=== PATIENT | female | born 1960 | race Hispanic/Latino ===

== ENCOUNTER 2021-02-25 22:31 | Emergency (ER) | payer MEDICAID ==
[~2021-02-25] VITALS: Ht 144.8 cm; Wt 117.0 kg
[~2021-02-25 22:31] MED LIST: AMLO-257 PO; ASPI-556 PO; CHOL100053 PO; DIVA500T52 PO; ENAL5TAB17 PO; ESOM40SU PO; GABA-531 PO; MONT-39 PO; SIMV40TA59 PO; TOPI50TA24 PO; TRAM50TA4 PO
[2021-02-25 22:48] VITALS: BP 111/74
[2021-02-25] MEDS ORDERED: HYDROCODONE/ACETAMINOPHEN 10/325 MG TAB ONE (22:51)
[2021-02-25] MEDS ORDERED: HYDROCODONE/ACETAMINOPHEN 10/325 MG TAB PO ONE (23:00)
[2021-02-25] MEDS ORDERED: ACET-2247 PO (23:19)
== END 2021-02-25 23:27 | disposition home or self-care (01) ==
LOC: EDH 22:31
DX: S93.402A Sprain of unspecified ligament of left ankle, initial encounter (principal); E03.9 Hypothyroidism, unspecified; I10 Essential (primary) hypertension; J44.9 Chronic obstructive pulmonary disease, unspecified; E66.9 Obesity, unspecified; Z88.0 Allergy status to penicillin; Z88.5 Allergy status to narcotic agent; Z79.82 Long term (current) use of aspirin; Z79.899 Other long term (current) drug therapy; X50.1XXA Overexertion from prolonged static or awkward postures, initial encounter; Y93.01 Activity, walking, marching and hiking; Y92.89 Other specified places as the place of occurrence of the external cause; Y99.8 Other external cause status
CPT/HCPCS: 73610; 73630

== ENCOUNTER 2024-02-10 12:24 | Inpatient (IN) | payer MEDICAID ==
[2024-02-10] VITALS (10 sets, daily range): BP systolic 155; BP diastolic 76–81; PULSE 71–89; RESP 16–27; TEMP 97.7–99.3; O2SAT 93–99
[~2024-02-10] VITALS: Ht 142.2 cm; Wt 129.9 kg
[~2024-02-10 12:24] MED LIST changes: +ACET-2247 PO; +ENAL-87 PO; -ENAL5TAB17 PO; +TOPI-97 PO; -TOPI50TA24 PO
[2024-02-10] MEDS: Solu-medROL 125MG VIAL IVP ONE (13:03)
[2024-02-10] MEDS: acetaMINOPHEN 500 MG TABLET PO ONE (13:04)
[2024-02-10 13:10] LABS: BASOPHILS # (AUTO) 0.08 K/uL (0.00-0.20); BASOPHILS % (AUTO) 0.4 % (0.0-5.0); EOSINOPHILS # (AUTO) 0.05 K/uL (0.00-0.70); EOSINOPHILS % (AUTO) 0.2 % (0.0-8.0); HEMATOCRIT 42.2 % (36-48); IMMATURE GRANULOCYTE ABSOLUTE 0.17 K/uL (0-1); LYMPHOCYTES # (AUTO) 2.3 K/uL (1.0-4.8); LYMPHOCYTES % (AUTO) 10.3 % (21.0-51.0); MEAN CORPUSCULAR HEMOGLOBIN 29.7 pg (27.0-33.0); MEAN CORPUSCULAR HGB CONC 32.7 g/dL (32.0-36.0); MEAN CORPUSCULAR VOLUME 90.9 fL (79-99); MONOCYTES # (AUTO) 1.4 K/uL (0.1-1.0); MONOCYTES % (AUTO) 6.6 % (3.0-13.0); NEUTROPHILS % (AUTO) 81.7 % (40.0-77.0); PLATELET COUNT (AUTO) 157 K/uL (130-400); RED BLOOD CELL COUNT(AUTO) 4.64 MIL/uL (4.00-5.50); RED CELL DISTRIBUTION WIDTH 15.9 % (11.0-15.5)
[2024-02-10] MEDS: IpraTROPium/alBUTERol SULFATE 3 ML SOLUTION IH ONE (13:13)
[2024-02-10 13:17] LABS: SARS-CoV-2, RNA, NAAT NEGATIVE SARS CoV-2 (NEGATIVE)
[2024-02-10 13:20] LABS: CREATININE 1.1 mg/dL (0.5-1.0); POTASSIUM 3.5 mmol/L (3.5-5.1)
[2024-02-10 13:22] LABS: INFLUENZA TYPE A Negative For Type A (NEGATIVE); INFLUENZA TYPE B Negative For Type B (NEGATIVE)
[2024-02-10 13:32] LABS: B-TYPE NATRIURETIC PEPTIDE 49 pg/mL (0-100)
[2024-02-10] MEDS ORDERED: AZITHROMYCIN 500MG+NS 250ML 250 ML IVPB ONE (14:00)
[2024-02-10] MEDS: DOXYCYCLINE 100MG+NS 250ML 250 ML IV SCH (14:24)
[2024-02-10] MEDS ORDERED: DiphenhydrAMINE HCL 25 MG CAPSULE PO PRN (14:30)
[2024-02-10] MEDS ORDERED: LACTULOSE 20 GM/30 ML UDCUP PO PRN (14:30)
[2024-02-10] MEDS ORDERED: guaiFENesin-DM 200/20MG 10ML PO PRN (14:30)
[2024-02-10] MEDS ORDERED: hydrALAZine 20MG/ML VIAL IV PRN (14:30)
[2024-02-10] MEDS ORDERED: hydrALAZine 25MG TABLET PO PRN (14:30)
[2024-02-10] MEDS ORDERED: acetaMINOPHEN 325 MG TAB PO PRN (14:30)
[2024-02-10] MEDS ORDERED: NITROGLYCERIN 0.4 MG SL TAB SL PRN (14:30)
[2024-02-10] MEDS ORDERED: ARTIFICAL TEARS SOL 15 ML OP PRN (14:30)
[2024-02-10] MEDS ORDERED: ondanSETRON 4MG INJ IV PRN (14:30)
[2024-02-10] MEDS ORDERED: ALPRAZolam 0.5 MG TABLET PO PRN (14:30)
[2024-02-10] MEDS ORDERED: MAG/ALUM/SIMETH 30 ML UDCUP PO PRN (14:30)
[2024-02-10] MEDS: levoFLOXacin 750 MG/D5W 150ML BAG IV ONE (14:37)
[2024-02-10] MEDS ORDERED: ROPI1TAB46 PO (15:20)
[2024-02-10] MEDS ORDERED: OMEP20CA12 PO (15:20)
[2024-02-10] MEDS ORDERED: HYDR25TA67 PO (15:20)
[2024-02-10] MEDS ORDERED: FURO80TA3 PO (15:20)
[2024-02-10] MEDS ORDERED: CETI10TA57 PO (15:20)
[2024-02-10] MEDS ORDERED: BUDE10.2 IH (15:20)
[2024-02-10] MEDS ORDERED: TRAZ-187 PO (15:20)
[2024-02-10] MEDS ORDERED: CARV25TA PO (15:20)
[2024-02-10] MEDS ORDERED: DAPA10TA PO (15:20)
[2024-02-10] MEDS ORDERED: AMLO-142 PO (15:20)
[2024-02-10] MEDS ORDERED: LEVO25CA4 PO (15:20)
[2024-02-10] MEDS ORDERED: SPIR25TA6 PO (15:20)
[2024-02-10] MEDS ORDERED: CLOP-31 PO (15:20)
[2024-02-10] MEDS ORDERED: DIVA500T52 PO (15:20)
[2024-02-10] MEDS: Solu-medROL 40MG VIAL IVP SCH (15:39)
[2024-02-10] MEDS: ceFEPime HCL 1 GM VIAL IVPB SCH (15:39)
[2024-02-10] MEDS: furoSEMIDE 40MG VIAL IV SCH (15:39)
[2024-02-10] MEDS: monteLUKAST sodIUM 10 MG TAB PO SCH (18:03)
[2024-02-10] MEDS: acetaMINOPHEN 325 MG TAB PO PRN (18:04)
[2024-02-10] MEDS: simVASTatin 20 MG TABLET PO SCH (19:57)
[2024-02-10] MEDS: divALPRoex SOdium 250 MG TAB PO SCH (19:58)
[2024-02-10] MEDS: topIRAMate 25 MG TABLET PO SCH (19:58)
[2024-02-10] MEDS: GABAPENTIN 300 MG CAPSULE PO SCH (19:58)
[2024-02-10] MEDS: INSULIN humuLIN R 100 UNIT/ML 3ML SQ SCH (19:59)
[2024-02-10] MEDS: IpraTROPium/alBUTERol SULFATE 3 ML SOLUTION IH SCH (20:21)
[2024-02-10] MEDS: ZOLPidem TARTrate 5 MG TAB PO PRN (20:39)
[2024-02-10] MEDS: FAMOTIDINE 20MG VIAL IV SCH (20:39)
[2024-02-10] MEDS: guaiFENesin SUGAR-FREE 100 MG/5 ML UDCUP PO PRN (20:39)
[2024-02-10] MEDS: BENZOCAINE/MENTH/CETYLPYRD CL 1 EACH LOZENGE MM PRN (20:39)
[2024-02-10 23:12] LABS: APPEARANCE,URINE CLEAR (CLEAR); BILIRUBIN,URINE NEGATIVE (NEGATIVE); COLOR,URINE LIGHT-YELLOW (YELLOW); GLUCOSE, URINE (UA) >=1000 mg/dL (NEGATIVE); KETONES,URINE NEGATIVE (NEGATIVE); LEUKOCYTE ESTERASE ,URINE NEGATIVE Leu/uL (NEGATIVE); NITRATE,URINE NEGATIVE (NEGATIVE); PROTEIN,URINE 10 mg/dL (NEGATIVE); UROBILINOGEN,URINE 0.2 mg/dL (0.2-1.0)
[2024-02-10 23:13] LABS: ADD UA MICROSCOPIC YES
[2024-02-10 23:14] LABS: BACTERIA,URINE FEW /HPF (None Seen); MUCUS,URINE RARE LPF (None Seen); RBC,URINE 0-1 /HPF (0-1); SQUAMOUS EPITHELIAL CELL,UR RARE /HPF (0-2)
[2024-02-11] VITALS (20 sets, daily range): BP systolic 121–145; BP diastolic 57–83; PULSE 64–89; RESP 19–30; TEMP 97.6–98.9; O2SAT 28–100
[2024-02-11 04:53] LABS: HEMATOCRIT 42.5 % (36-48); MEAN CORPUSCULAR HEMOGLOBIN 29.2 pg (27.0-33.0); MEAN CORPUSCULAR HGB CONC 32.7 g/dL (32.0-36.0); MEAN CORPUSCULAR VOLUME 89.3 fL (79-99); RED BLOOD CELL COUNT(AUTO) 4.76 MIL/uL (4.00-5.50); RED CELL DISTRIBUTION WIDTH 14.8 % (11.0-15.5); WHITE BLOOD COUNT (AUTO) 16.3 K/uL (4.8-10.8)
[2024-02-11 05:02] LABS: HEMOGLOBIN A1C 6.1 % (4.0-6.0)
[2024-02-11 05:15] LABS: CREATININE 1.1 mg/dL (0.5-1.0); MAGNESIUM 1.5 mg/dL (1.80-2.40); PHOSPHORUS 3.4 mg/dL (2.5-4.9); POTASSIUM 3.7 mmol/L (3.5-5.1)
[2024-02-11] MEDS: PANTOPrazole 40 MG TAB DR PO SCH (06:36)
[2024-02-11] MEDS: ENALAPRIL MALEATE 5 MG TAB PO SCH (08:49)
[2024-02-11] MEDS: amLODIPine 5 MG TAB PO SCH (08:50)
[2024-02-11] MEDS: ASPIRIN 81 MG EC TAB PO SCH (08:51)
[2024-02-11] MEDS: ENOXAPARIN SODIUM 40 MG/0.4 ML SYRINGE SQ SCH (08:52)
[2024-02-11] MEDS: ropiNIRole HCL 1 MG TABLET PO SCH (08:56)
[2024-02-11] MEDS: cloPIDOgrel 75MG TAB PO SCH (08:56)
[2024-02-11] MEDS: SPIRONOLACTONE 25 MG TAB PO SCH (08:56)
[2024-02-11] MEDS: carVEDIlol 25 MG TABLET PO SCH (08:56)
[2024-02-11] MEDS: hydrALAZine 25MG TABLET PO SCH (08:56)
[2024-02-11] MEDS ORDERED: DIVALPROEX SODIUM 500 MG PO SCH (09:00)
[2024-02-11] MEDS ORDERED: PHARMACY COMMUNICATION MISC SCH (09:30)
[2024-02-11] MEDS ORDERED: PoTASSium chl 10% ELIXIR 20MEQ 20 MEQ/15 ML UDCUP PO PRN (11:30)
[2024-02-11] MEDS ORDERED: PoTASSium chloRIDE 20MEQ/100ML 100 ML IV PRN (11:30)
[2024-02-11] MEDS: MAGNESIUM 2GM PREMIX 50ML 50 ML IV PRN (12:13)
[2024-02-11] MEDS: BUDESONIDE 0.5 MG/2 ML INH IH SCH (19:10)
[2024-02-11] MEDS: trAZOdone HCL 100 MG TABLET PO SCH (20:01)
[2024-02-11] MEDS: PoTASSium chloRIDE 20MEQ ER 20 MEQ ERTAB PO PRN (20:02)
[2024-02-11] MEDS: APIXaban 5 MG TABLET PO SCH (20:02)
[2024-02-12] VITALS (9 sets, daily range): BP systolic 136–150; BP diastolic 75–81; PULSE 21–80; RESP 20–29; TEMP 97.5–97.8; O2SAT 97–100
[2024-02-12 05:48] LABS: HEMATOCRIT 41.2 % (36-48); MEAN CORPUSCULAR HEMOGLOBIN 30.3 pg (27.0-33.0); MEAN CORPUSCULAR VOLUME 91.8 fL (79-99); RED BLOOD CELL COUNT(AUTO) 4.49 MIL/uL (4.00-5.50); RED CELL DISTRIBUTION WIDTH 15.3 % (11.0-15.5); WHITE BLOOD COUNT (AUTO) 19.2 K/uL (4.8-10.8)
[2024-02-12 06:09] LABS: CREATININE 1.3 mg/dL (0.5-1.0)
[2024-02-12] MEDS: AMLODIPINE BENAZEPRIL PO SCH (09:00)
[2024-02-12] MEDS: levoTHYROxine 25 MCG TABLET PO SCH (09:07)
[2024-02-12] MEDS ORDERED: APIX5TAB PO (11:59)
[2024-02-12] MEDS ORDERED: LEVO750T68 PO (11:59)
[2024-02-12] MEDS ORDERED: DOXY200T8 PO (11:59)
[2024-02-17] MEDS ORDERED: CHOLECALCIFEROL 50000 UNIT PO SCH (09:00)
== END 2024-02-12 13:45 | disposition home or self-care (01) | DRG 133 ==
LOC: EDH 12:24 → EDHIP 12:25 → UNDOADMIN 14:05 → 3AH 16:30
PROVIDERS: ADMIT Internal Medicine Pulmonary Disease; ATTEND Internal Medicine Pulmonary Disease
PROC: 5A09357 Assistance with Respiratory Ventilation, Less than 24 Consecutive Hours, Continuous Positive Airway Pressure (ICD-10-PCS; 2024-02-11)
PROC: 5A09357 Assistance with Respiratory Ventilation, Less than 24 Consecutive Hours, Continuous Positive Airway Pressure (ICD-10-PCS; principal; 2024-02-12)
DX: J96.21 Acute and chronic respiratory failure with hypoxia (principal); J18.9 Pneumonia, unspecified organism; R65.10 Systemic inflammatory response syndrome (SIRS) of non-infectious origin without acute organ dysfunction; I11.0 Hypertensive heart disease with heart failure; I50.9 Heart failure, unspecified; J44.0 Chronic obstructive pulmonary disease with (acute) lower respiratory infection; Z68.44 Body mass index [BMI] 60.0-69.9, adult; I48.91 Unspecified atrial fibrillation; T38.0X5A Adverse effect of glucocorticoids and synthetic analogues, initial encounter; E03.9 Hypothyroidism, unspecified; E66.01 Morbid (severe) obesity due to excess calories; E78.5 Hyperlipidemia, unspecified; Z20.822 Contact with and (suspected) exposure to COVID-19; Z95.0 Presence of cardiac pacemaker; Z99.81 Dependence on supplemental oxygen; Y92.89 Other specified places as the place of occurrence of the external cause; Z88.0 Allergy status to penicillin; Z88.5 Allergy status to narcotic agent; Z79.01 Long term (current) use of anticoagulants; Z79.82 Long term (current) use of aspirin
CPT/HCPCS: 36415; 71045; 80048; 81001; 82948; 83036; 83605; 83735; 83880; 84100; 84145; 84443; 84484; 85025; 85027; 87040; 87635; 87804; 93005; 94640; 94660; 94664; 96365; G0378; J0692; J1650; J1815; J1940; J1956; J2919; J3475; J3490

== ENCOUNTER 2024-07-26 19:04 | Emergency (ER) | payer MEDICAID ==
[~2024-07-26] VITALS: Ht 144.8 cm; Wt 122.0 kg
[~2024-07-26 19:04] MED LIST changes: +AMLO-142 PO; -AMLO-257 PO; +APIX5TAB PO; -ASPI-556 PO; +BUDE10.2 IH; +CARV25TA PO; +CETI10TA57 PO; +DAPA10TA PO; +DOXY200T8 PO; -ENAL-87 PO; -ESOM40SU PO; +FURO80TA3 PO; +HYDR25TA67 PO; +LEVO25CA5 PO; +LEVO750T68 PO; +OMEP20CA12 PO; +ROPI1TAB46 PO; +SPIR25TA6 PO; -TRAM50TA4 PO; +TRAZ-187 PO
--- NOTE | 2024-07-26 19:28 | NUR ---
UA CUP PROVIDED
--- NOTE | 2024-07-26 19:29 | ERN ---
ED Note History of Present Illness Stated Complaint: KIDNEY PAIN Chief Complaint: Abdominal Pain Time Seen by MD: 19:05 Dictation: PATIENT IS A 64-YEAR-OLD FEMALE COMING IN TODAY WITH COMPLAINTS OF LEFT FLANK PAIN THAT RADIATES TO THE LEFT LOWER QUADRANT WITH NAUSEA. SHE DENIES CHANGES IN BOWEL OR BLADDER FUNCTION NO FEVER NO CHILLS STATES SHE SAW HER PRIMARY CARE DOCTOR WHO HAS BEEN GIVING HER INJECTIONS FOR PAIN AND TOLD HER THAT SHE WOULD SCHEDULED FOR HER CAT SCAN ON THE OF THIS MONTH RULE OUT STONE. SHE STATES SHE CAME IN TONIGHT BECAUSE SHE CAN NO LONGER TOLERATE THE PAIN. Allergies: Coded Allergies: morphine (Unverified Allergy, Severe, 02/23/15) SWOLLEN THROAT Penicillins (Unverified Allergy, Intermediate, RASH, 02/23/15) codeine (Unverified Allergy, Intermediate, RASH, 02/23/15) No Allergy Information Available (Verified Allergy, Unknown, 02/23/15) Home Meds Active Scripts Levofloxacin (Levaquin 750Mg Tabs) 750 Mg Tablet, 1 TAB PO DAILY for 7 Days, #7 TAB 0 Refills Prov:NORMA BATISTA NP 02/12/24 Doxycycline Hyclate (Doxycycline Hyclate) 200 Mg Tablet.dr, 1 TAB PO BID for 7 Days, #7 TAB 0 Refills Prov:NORMA BATISTA NP 02/12/24 Apixaban (Eliquis) 5 Mg Tablet, 5 MG PO BID, #60 TAB Prov:NORMA BATISTA JAVA ARCHITECT 02/12/24 Acetaminophen (Tylenol) 325 Mg Tablet, 650 MG PO Q4H, #50 TAB Prov:TOI YOUNG 02/25/21 Gabapentin (Gabapentin) 300 Mg Capsule, 600 MG PO BID, #60 CAP Prov:MAHESH JONES MD 02/26/15 Reported Medications Furosemide (Furosemide) 80 Mg Tablet, 1 TAB PO DAILY for 30 Days, #30 TAB 0 Refills 02/10/24 Carvedilol (Carvedilol) 25 Mg Tablet, 25 MG PO AM, TAB 02/10/24 Amlodipine Besylate/Benazepril (Amlodipine-Benazepril 10-40 mg) 10 Mg-40 Mg Capsule, 1 EACH PO AM, CAP 02/10/24 Hydralazine HCl (Hydralazine HCl) 25 Mg Tablet, 25 MG PO DAILY, TAB 02/10/24 Spironolactone (Spironolactone) 25 Mg Tablet, 1 TAB PO BID for 30 Days, #30 TAB 0 Refills 02/10/24 Ropinirole HCl (Ropinirole HCl) 1 Mg Tablet, 1 MG PO AM, TAB 02/10/24 Dapagliflozin Propanediol (Farxiga) 10 Mg Tablet, 1 TAB PO DAILY for 30 Days, #30 TAB 0 Refills 02/10/24 Cetirizine HCl (Cetirizine HCl) 10 Mg Tablet, 1 TAB PO DAILY for allergy symptoms for 30 Days, #30 TAB 0 Refills 02/10/24 Omeprazole (Omeprazole) 20 Mg Capsule.dr, 20 MG PO AM, CAP 02/10/24 Trazodone HCl (Trazodone HCl) 100 Mg Tablet, 100 MG PO HS, TAB 02/10/24 Levothyroxine Sodium (Levothyroxine) 25 Mcg Capsule, 25 MCG PO AM, CAP 02/10/24 Budesonide/Formoterol Fumarate (Symbicort 160-4.5 Mcg Inhaler) 160 Mcg-4.5 Mcg/Actuation Hfa.aer.ad, 2 PUFF IH BID, GM 0 Refills 02/10/24 Simvastatin (ZOCOR) 40 Mg Tablet, 40 MG PO HS, TAB 02/24/15 Topiramate (Topiramate) 50 Mg Tablet, 50 MG PO BID, TAB 02/24/15 Montelukast Sodium (Montelukast Sodium) 10 Mg Tablet, 10 MG PO DAILYDINNER, TAB 02/24/15 Cholecalciferol (Vitamin D3) (Vitamin D) 10,000 Unit Capsule, 90830 UNIT PO QWEEK, CAP 50,000 UNITS Q Monday02/24/15 Divalproex Sodium (Divalproex Sodium ER) 500 Mg Tab.er.24h, 500 MG PO BID, TAB 02/24/15 Past Medical History Past Medical History: Asthma, CHF, COPD, Heart Disease, Hypertension, Hypothyroid, Seizure, Stroke Additional Past Medical Hx: Obesity Surgical History: Tonsillectomy, Cholecystectomy, Pacer/AICD, Other, Surgical History Other: ABD History: Not Applicable RN Note Reviewed/Agreed w/PFSH: Yes Review of System Dictation CONSTITUTIONAL: NEGATIVE EXCEPT FOR HPI HEAD/FACE: NEGATIVE EXCEPT FOR HPI EENT: NEGATIVE EXCEPT FOR HPI RESPIRATORY: NEGATIVE EXCEPT FOR HPI GASTROINTESTINAL/ABDOMINAL: NEGATIVE EXCEPT FOR HPI LEFT FLANK PAIN RADIATING LEFT LOWER QUADRANT GENITOURINARY: NEGATIVE EXCEPT FOR HPI MUSCULOSKELETAL: NEGATIVE EXCEPT FOR HPI INTEGUMENTARY: NEGATIVE EXCEPT FOR HPI NEUROLOGICAL/PSYCH: NEGATIVE EXCEPT FOR HPI HEMATOLOGIC/LYMPHATIC: NEGATIVE EXCEPT FOR HPI ALL SYSTEMS NEGATIVE, EXCEPT NOTED ABOVE. 13 POINT REVIEW OF SYSTEMS ASSESSED AND ALL NEGATIVE EXCEPT FOR ABOVE. Initial Vital Sign VS Vital Signs Date Time Temp Pulse Resp B/P (MAP) Pulse Ox O2 Delivery O2 Flow Rate FiO2 07/26/24 19:18 98.2 60 20 152/71 100 Room Air 07/26/24 21:33 0 21 Physical Exam Dictation VITAL SIGNS REVIEWED GENERAL APPEARANCE: ALERT, ORIENTED X 3, MODERATE ACUTE DISTRESS, WELL DEVELOPED, NOURISHED. OBESE HEAD AND FACE: NON-TRAUMATIC. EYES: PERRL, PINK CONJUNCTIVAS, EYELID NO TRAUMA, ANTERIOR CHAMBER WITH ARCUS SENILIS. EARS: PINNAS INTACT AND NO SIGNS OF TRAUMA OR ERYTHEMA EAR CANALS CLEAR AND NO DISCHARGE TM NO ERYTHEMA NOSE: NO DISCHARGE, NO BLEEDING. OROPHARYNX: MOUTH NORMAL, TONGUE PINK, PHARYNX CLEAR,NO ERYTHEMA, TONSILS NO EXUDATES, NO ABSCESSES NOTED, MUCOUS MEMBRANE MOIST NECK: SUPPLE, NON-TENDER, NO THYROMEGALY, NO MASSES, NO JVD, NO BRUITS BREAST:DEFERRED CHEST:NO TENDERNESS, NO CREPITUS, NO PARADOXICAL MOVEMENT, NO RETRACTIONS LUNGS:CLEAR, WELL-VENTILATED, SYMMETRIC, NO RALES, NO WHEEZING, NO RHONCHI, NO STRIDOR, GOOD BREATH SOUNDS BILATERALLY HEART: REGULAR RATE, REGULAR RHYTHM, NO MURMUR, NO GALLOPS VASCULAR: NO PERIPHERAL EDEMA, ABDOMEN: SOFT, POSITIVE BOWEL SOUNDS, NONDISTENDED, NO GUARDING, , NO REBOUND, NO MASSES NO HEPATOMEGALY, NO SPLENOMEGALY, NO ORTIZ'S SIGN, NO HERNIAS. NEGATIVE CVA, POSITIVE LEFT LOWER QUADRANT TENDERNESS WITH PALPATION RECTAL: DEFERRED GENITAL: DEFERRED NEUROLOGICAL: NORMAL SPEECH, MOTOR FUNCTION INTACT, SENSORY FUNCTION INTACT MUSCULOSKELETAL: NECK NONTENDER, FULL RANGE OF MOTION, BACK NONTENDER, FULL RANGE OF MOTION, EXTREMITIES: NONTENDER, FULL RANGE OF MOTION SKIN: COLOR PINK, DRY, NO TURGOR, NO RASH, NO LACERATIONS, NO ABRASIONS, NO CONTUSIONS. LYMPHATIC: DEFERRED Results (Laboratory/Radiology) Laboratory/Radiology Laboratory Tests Test 07/26/24 19:27 07/26/24 20:11 Urine Color LIGHT-YELLOW (YELLOW) Urine Appearance CLEAR (CLEAR) Urine pH 6.5 (5.0-8.0) Urine Specific [place] 1.017 (1.001-1.031) Urine Protein NEGATIVE mg/dL (NEGATIVE) Urine Glucose (UA) >=1000 mg/dL (NEGATIVE) H Urine Ketones NEGATIVE mg/dL (NEGATIVE) Urine Occult Blood NEGATIVE (NEGATIVE) Urine Nitrate NEGATIVE (NEGATIVE) Urine Bilirubin NEGATIVE mg/dL (NEGATIVE) Urine Urobilinogen 0.2 mg/dL (0.2-1.0) Urine Leukocyte Esterase NEGATIVE [place]/uL Urine RBC 2-5 /HPF (0-1) H Urine WBC 2-5 /HPF (0-1) H Urine Squamous Epithelial Cells RARE /HPF (0-2) Urine Bacteria None /HPF (None Seen) Urine Yeast RARE /HPF (None Seen) White Blood Count 14.5 K/uL (4.8-10.8) H Red Blood Count 4.52 MIL/uL (4.00-5.50) Hemoglobin 13.2 g/dL (12.0-16.0) Hematocrit 41.7 % (36-48) Mean Corpuscular Volume 92.3 fL (79-99) Mean Corpuscular Hemoglobin 29.2 pg (27.0-33.0) Mean Corpuscular Hemoglobin Concent 31.7 g/dL (32.0-36.0) L Red Cell Distribution Width 16.7 % (11.0-15.5) H Platelet Count 230 K/uL (130-400) Mean Platelet Volume 10.6 fL (7.5-10.5) H Immature Granulocyte % (Auto) 1.0 % (0-1) Neutrophils (%) (Auto) 77.5 % (40.0-77.0) H Lymphocytes (%) (Auto) 14.4 % (21.0-51.0) L Monocytes (%) (Auto) 5.5 % (3.0-13.0) Eosinophils (%) (Auto) 1.1 % (0.0-8.0) Basophils (%) (Auto) 0.5 % (0.0-5.0) Neutrophils # (Auto) 11.2 K/uL (1.8-7.7) H Lymphocytes # (Auto) 2.1 K/uL (1.0-4.8) Monocytes # (Auto) 0.8 K/uL (0.1-1.0) Eosinophils # (Auto) 0.16 K/uL (0.00-0.70) Basophils # (Auto) 0.07 K/uL (0.00-0.20) Absolute Immature Granulocyte (auto 0.14 K/uL (0-1) Nucleated Red Blood Cells 0.0 % (0.0-0.19) Sodium Level 138 mmol/L (136-145) Potassium Level 4.7 mmol/L (3.5-5.1) Chloride Level 103 mmol/L (101-111) Carbon Dioxide Level 28 mmol/L (21-32) Blood Urea Nitrogen 29 mg/dL (7-18) H Creatinine 1.2 mg/dL (0.5-1.0) H Glomerular Filtration Rate Calc 51 mL/min (>90) Random Glucose 106 mg/dL (70-105) H Total Calcium 8.9 mg/dL (8.5-10.1) ABDOMEN/PELVIS W/O CONTRAST HISTORY: Left flank pain COMPARISON: None TECHNIQUE: Multiple sequential axial images of the abdomen and pelvis were obtained from the dome of the diaphragm through symphysis pubis. Patient was not given contrast through intravenous route. Oral contrast was not given. FINDINGS: No pleural effusion is seen bilaterally. There is no evidence of parenchymal disease or pulmonary nodule of the visualized lower lungs. Degenerative changes of the thoracolumbar spine are present. Orthopedic fixation plates and screws are seen traversing the L3 and L4 causing artifacts limiting evaluation. Laminectomy changes are seen at these levels. The heart is not enlarged. There is a large measuring 22 cm. Post cholecystectomy changes are seen. The liver, spleen, adrenal glands and pancreas are unremarkable. There is no evidence of hydronephrosis bilaterally. No evidence of renal stone is seen. Fecal material is seen in the colon. There is diverticulosis. Minimal mesenteric fat stranding is seen adjacent to the descending colon may be related to early diverticulitis. No focal abscess is seen. There are normal size retroperitoneal and mesenteric lymph nodes. No ascites is seen. Appendix is not well seen limiting evaluation. Pelvic sidewalls are symmetric bilaterally. Bladder is poorly distended. IMPRESSION: 1. There is diverticulosis. Minimal mesenteric fat stranding is seen adjacent to the descending colon may be related to early diverticulitis. No focal abscess is seen. Labs Reviewed?: Yes ED Course ED Course Orders Procedure Category Date Status Time Cbc With Differential LAB 07/26/24 Complete 19:18 Urinalysis Profile LAB 07/26/24 Complete 19:18 0.9%Nacl 1000ml (Ns PHA 07/26/24 Complete 1000ml) 19:30 Ketorolac PHA 07/26/24 Complete Tromethamine 30mg/Ml 19:30 Ct Abdomen/Pelvis W/O CT 07/26/24 Resulted Contrast 19:18 Basic Metabolic Panel LAB 07/26/24 Complete 19:18 Blood Cult PRITESH 07/26/24 In Process 20:46 Levofloxacin 750 PHA 07/26/24 Complete Mg/D5w 150 Ml 21:00 Current Medications Medications (Trade) Dose Ordered Sig/Royer Route PRN Reason Start Time Stop Time Status Last Admin Dose Admin Ketorolac Tromethamine (toRADol) 30 mg ONCE ONCE IVP 07/26/24 19:30 07/26/24 19:31 DC 07/26/24 20:33 Levofloxacin/ Dextrose (LEvaquIN 750 MG/ D5W 150 ML) 750 mg ONCE ONCE IV 07/26/24 21:00 07/26/24 21:01 DC 07/26/24 21:23 Sodium Chloride 1,000 ml @ 0 mls/hr ONCE ONCE IV 07/26/24 19:30 07/26/24 19:31 DC 07/26/24 20:32 Vital Signs Date Time Temp Pulse Resp B/P (MAP) Pulse Ox O2 Delivery O2 Flow Rate FiO2 07/26/24 21:33 98.4 65 18 149/72 100 Room Air* 0 21 07/26/24 19:18 98.2 60 20 152/71 100 Room Air 2140/DISCUSSED CLINICAL FINDINGS AND LEVAQUIN PATIENT TO INCLUDE HER CAT SCAN. SHE HAS MADE AWARE SHE HAS A ACUTE DIVERTICULITIS WITH A 53166 WHITE COUNT SHE SAID SHE DID NOT WANT TO STAY IN THE HOSPITAL WOULD LIKE TO BE DISCHARGED HOME WITH OUTPATIENT ANTIBIOTICS STATES SHE CAN ADHERE TO A CLEAR LIQUID DIET AND TAKE THE ANTIBIOTICS AND MEDICATIONS DESCRIBED I EXPLAINED TO HER THAT I COULD DISCHARGE HER HOME BUT IF SHE HAD ANY INCREASE IN PAIN NAUSEA VOMITING OR FEVERS TO COME BACK TO THE HOSPITAL SHE AGREED. Medical Decision Making MDM MDM: DIFFERENTIAL DIAGNOSIS: APPENDICITIS/DIVE RTICULITIS/UROLITHIASIS/UTI/HERNIA/ELECTROLYTE IMBALANCE/DEHYDRATION/SEPSIS RATIONALE: TESTS CONSIDERED AND ORDERED SECONDARY TO SHARED DECISION MAKING INCLUDE: RADIOLOGY/LABS PREVIOUS OUTSIDE RECORDS REVIEWED: OLD ER VISITS. RISK OF COMPLICATION AND/OR MORBIDITY OR MORTALITY OF PATIENT MANAGEMENT: MILD MEDICATIONS-PER MEDICATION RECONCILIATION NEED FOR HOSPITALIZATION: PATIENT DOES NOT MEET CRITERIA FOR HOSPITALIZATION. PATIENT REFUSED ADMISSION AT THIS TIME STATES SHE WILL GO HOME ON ANTIBIOTICS AND WOULD RATHER STAY AT HOME FOLLOW A CLEAR LIQUID DIET AND TAKE THE MEDICATIONS. NEED FOR EMERGENCY MAJOR/MINOR SURGERY: NO THERE ARE NO SOCIAL CONCERNS WITH THIS PATIENT. PRESCRIPTION DRUG MANAGEMENT TYLENOL NO. 3/FLAGYL/CIPRO PRESCRIPTIONS WILL INCLUDE SYMPTOMATIC CARE PATIENT'S PRIOR EXTERNAL MEDICAL RECORDS FROM OTHER ER VISITS WERE REVIEWED BY ME INDICATED. PRIOR TESTING AND RESULTS FROM PREVIOUS VISITS WERE REVIEWED. PRIOR TESTS WERE TAKEN INTO ACCOUNT WITH MEDICAL DECISION MAKING AND RESOURCE UTILIZATION, INDEPENDENT HISTORIAN/HISTORIANS WERE USED TO OBTAIN COMPLETE MEDICAL HISTORY. I INDEPENDENTLY INTERPRETED THE TEST THAT WERE PERFORMED, RESULTS WERE REVIEWED BY ME AND CONSIDERED FINDINGS ON RADIOLOGY IF ORDERED. MEDICAL MANAGEMENT AND EXAMINATION INTERPRETATION DISCUSSIONS WERE HAD BY ME WITH OTHER QUALIFIED HEALTHCARE PROFESSIONALS INDICATED FOR THE PATIENT'S CARE. DX & DISP Disposition: Discharge Departure Impression: Primary Impression: Diverticulitis of sigmoid colon Additional Impressions: Dehydration, Hyperglycemia Condition: Stable Scripts Acetaminophen with Codeine (Acetaminophen-Cod #3 Tablet) 300 Mg-30 Mg Tablet 1 TAB PO Q4H PRN for MODERATE TO SEVERE PAIN, #15 TAB 0 Refills Prov: SUSIE RAMÍREZ JAVA ARCHITECT 07/26/24 Metronidazole (Metronidazole) 500 Mg Tablet 1 TAB PO TID for 10 Days, #30 TAB 0 Refills Prov: SUSIE RAMÍREZ JAVA ARCHITECT 07/26/24 Ciprofloxacin HCl (Cipro) 500 Mg Tablet 1 TAB PO BID for 10 Days, #20 TAB 0 Refills Prov: SUSIE RAMÍREZ JAVA ARCHITECT 07/26/24 Additional Instructions: Follow-up with primary care provider in 1 to 2 days. Take medications as directed here in the emergency room. Okay to continue home medications unless otherwise discussed during your visit in the emergency room today. Return to your nearest emergency room if symptoms worsen or if there is no improvement. Call 911 if you need immediate assistance. Take Tylenol or Motrin [id number] as needed and if no contraindications are present. Increase oral hydration. A wound culture or urine culture was ordered here in the em ergency room department please follow-up with primary care provider and advise them to get repeat ports from our facility. If you had any Lion wrap/splints that were applied here, please do not remove them until you see your primary care or specialty. Follow a clear liquid diet with soup broth bouillon etc. no solid food for three days. Take antibiotics as directed until gone. See your primary care doctor on Monday without fail for follow up and management for directions for a high-fiber diet and diverticulitis. Return to the emergency room if fever chills, nausea vomiting and unable to keep food down or pain gets worse. Referrals: CRISTAL CARDOZO MD (PCP) Time of Disposition: 21:46 I have reviewed the case, and I agree with, Diagnosis and Plan SUSIE RAMÍREZ NP Jul 26, 2024 19:29
[2024-07-26 19:43] LABS: ADD UA MICROSCOPIC YES; APPEARANCE,URINE CLEAR (CLEAR); BILIRUBIN,URINE NEGATIVE (NEGATIVE); COLOR,URINE LIGHT-YELLOW (YELLOW); GLUCOSE, URINE (UA) >=1000 mg/dL (NEGATIVE); KETONES,URINE NEGATIVE (NEGATIVE); LEUKOCYTE ESTERASE ,URINE NEGATIVE Leu/uL (NEGATIVE); NITRATE,URINE NEGATIVE (NEGATIVE); OCCULT BLOOD,URINE NEGATIVE (NEGATIVE); PH,URINE 6.5 (5.0-8.0); PROTEIN,URINE NEGATIVE (NEGATIVE); SQUAMOUS EPITHELIAL CELL,UR RARE /HPF (0-2); UROBILINOGEN,URINE 0.2 mg/dL (0.2-1.0); YEAST,URINE BUDDING RARE /HPF (None Seen)
--- NOTE | 2024-07-26 20:00 | NUR ---
PT PLACED IN FAST TRACK AT THIS TIME AOX4 ON WHEELCHAIR
--- NOTE | 2024-07-26 20:08 | HMCIMG ---
CT ABDOMEN/PELVIS W/O CONTRAST HISTORY: Left flank pain COMPARISON: None TECHNIQUE: Multiple sequential axial images of the abdomen and pelvis were obtained from the dome of the diaphragm through symphysis pubis. Patient was not given contrast through intravenous route. Oral contrast was not given. FINDINGS: No pleural effusion is seen bilaterally. There is no evidence of parenchymal disease or pulmonary nodule of the visualized lower lungs. Degenerative changes of the thoracolumbar spine are present. Orthopedic fixation plates and screws are seen traversing the L3 and L4 causing artifacts limiting evaluation. Laminectomy changes are seen at these levels. The heart is not enlarged. There is a large measuring 22 cm. Post cholecystectomy changes are seen. The liver, spleen, adrenal glands and pancreas are unremarkable. There is no evidence of hydronephrosis bilaterally. No evidence of renal stone is seen. Fecal material is seen in the colon. There is diverticulosis. Minimal mesenteric fat stranding is seen adjacent to the descending colon may be related to early diverticulitis. No focal abscess is seen. There are normal size retroperitoneal and mesenteric lymph nodes. No ascites is seen. Appendix is not well seen limiting evaluation. Pelvic sidewalls are symmetric bilaterally. Bladder is poorly distended. IMPRESSION: 1. There is diverticulosis. Minimal mesenteric fat stranding is seen adjacent to the descending colon may be related to early diverticulitis. No focal abscess is seen. CT was performed with one or more following dose reduction techniques: automated exposure control, adjustment of the mA and kv according to patient's size, or use of a iterative reconstruction technique.
[2024-07-26 20:22] LABS: BASOPHILS # (AUTO) 0.07 K/uL (0.00-0.20); BASOPHILS % (AUTO) 0.5 % (0.0-5.0); EOSINOPHILS # (AUTO) 0.16 K/uL (0.00-0.70); EOSINOPHILS % (AUTO) 1.1 % (0.0-8.0); HEMATOCRIT 41.7 % (36-48); IMMATURE GRANULOCYTE ABSOLUTE 0.14 K/uL (0-1); LYMPHOCYTES # (AUTO) 2.1 K/uL (1.0-4.8); LYMPHOCYTES % (AUTO) 14.4 % (21.0-51.0); MEAN CORPUSCULAR HEMOGLOBIN 29.2 pg (27.0-33.0); MEAN CORPUSCULAR HGB CONC 31.7 g/dL (32.0-36.0); MEAN CORPUSCULAR VOLUME 92.3 fL (79-99); MONOCYTES # (AUTO) 0.8 K/uL (0.1-1.0); MONOCYTES % (AUTO) 5.5 % (3.0-13.0); NEUTROPHILS # (AUTO) 11.2 K/uL (1.8-7.7); NEUTROPHILS % (AUTO) 77.5 % (40.0-77.0); PLATELET COUNT (AUTO) 230 K/uL (130-400); RED BLOOD CELL COUNT(AUTO) 4.52 MIL/uL (4.00-5.50); RED CELL DISTRIBUTION WIDTH 16.7 % (11.0-15.5); WHITE BLOOD COUNT (AUTO) 14.5 K/uL (4.8-10.8)
--- NOTE | 2024-07-26 20:30 | NUR ---
ASSUMED CARE AT THIS TIME.
[2024-07-26 20:31] LABS: CREATININE 1.2 mg/dL (0.5-1.0); POTASSIUM 4.7 mmol/L (3.5-5.1)
[2024-07-26] MEDS: 0.9%NACL 1000ML 1,000 ML IV ONE (20:32)
[2024-07-26] MEDS: ketOROlac 30MG VIAL (30MG/ML) IVP ONE (20:33)
[2024-07-26] MEDS: levoFLOXacin 750 MG/D5W 150ML BAG IV ONE (21:23)
[2024-07-26] MEDS ORDERED: METR-172 PO (21:48)
[2024-07-26] MEDS ORDERED: CIPR-278 PO (21:48)
[2024-07-26] MEDS ORDERED: ACET-2079 PO (21:48)
[2024-07-26 22:26] VITALS: BP 145/68; PULSE 62; RESP 16; TEMP 98.2; O2SAT 100
== END 2024-07-26 22:28 | disposition home or self-care (01) ==
LOC: EDH 19:04
DX: K57.32 Diverticulitis of large intestine without perforation or abscess without bleeding (principal); E86.0 Dehydration; R73.9 Hyperglycemia, unspecified; E03.9 Hypothyroidism, unspecified; E66.9 Obesity, unspecified; I11.0 Hypertensive heart disease with heart failure; I50.9 Heart failure, unspecified; Z79.01 Long term (current) use of anticoagulants; Z79.51 Long term (current) use of inhaled steroids; Z79.84 Long term (current) use of oral hypoglycemic drugs; Z79.899 Other long term (current) drug therapy; Z86.73 Personal history of transient ischemic attack (TIA), and cerebral infarction without residual deficits; Z88.0 Allergy status to penicillin; Z88.5 Allergy status to narcotic agent; Z90.49 Acquired absence of other specified parts of digestive tract; Z90.89 Acquired absence of other organs; Z95.810 Presence of automatic (implantable) cardiac defibrillator
CPT/HCPCS: 99285; 74176; 96374; 96375; 80048; 85025; 87040 ×2; 81001; 36415; J1885; J1956; J7030